=== PATIENT | male | born 1965 | race Caucasian/White ===

== ENCOUNTER 2017-10-25 20:51 | Emergency (ER) | payer OTHER ==
[~2017-10-25] VITALS: Ht 180.3 cm; Wt 116.7 kg
[~2017-10-25 20:51] MED LIST: FLEXERIL5 MG PO; MOTRIN600 MG PO; SIMVASTATIN10 MG PO; TAGAMET HB200 M2 PO; [UNRECOGNIZED DRUG - REMARK]
[2017-10-25 22:30] LABS: HEMOGLOBIN 13.2 G/DL (12.5-16.6); MCHC 34.7 G/DL (30.0-36.0); PLATELET COUNT 261 K/uL (156-360); RBC DIS.WIDTH-CV 11.6 % (11.8-14.6); RBC DIS.WIDTH-SD 39.7 % (39-53); RED BLOOD COUNT 4.13 M/uL (4.00-5.50); WHITE BLOOD COUNT 6.9 K/uL (4.1-10.2)
[2017-10-25 22:40] LABS: ALBUMIN 4.2 g/dL (3.2-4.8)
[2017-10-25 22:41] LABS: CHLORIDE 108 mEq/L (99-109); POTASSIUM 4.1 mEq/L (3.7-5.4); SODIUM 143 mEq/L (136-147)
[2017-10-25 22:43] LABS: GLUCOSE 86 mg/dL (70-99); TOTAL PROTEIN 7.3 g/dL (6.4-8.3)
[2017-10-25 22:45] LABS: TOTAL BILIRUBIN 0.4 mg/dL (0.0-1.0)
[2017-10-25 22:46] LABS: ALKALINE PHOSPHATASE 74 IU/L (3-129)
[2017-10-25 22:47] LABS: CREATININE 0.9 mg/dL (0.6-1.3); GFR ESTIMATE (CALCULATED) > 59 mL/min/ (58.99-99999)
[2017-10-25 22:48] LABS: AST (GOT) 26 IU/L (2-34); UREA NITROGEN (BUN) 15 mg/dL (9-23)
[2017-10-25 22:49] LABS: ALT (GPT) 44 IU/L (3-49)
[2017-10-25] MEDS ORDERED: CLEOCIN300 MG PO (23:55)
[2017-10-26 00:40] VITALS: BP 151/81
== END 2017-10-26 00:40 | disposition home or self-care (01) ==
LOC: EME 20:51
PROVIDERS: Physician Assistant
DX: L03.115 Cellulitis of right lower limb (principal); I10 Essential (primary) hypertension
CPT/HCPCS: 80053; 83605; 85027; 87040; 93971; 99281; 99285; J1885